=== PATIENT | male | born 1990 | race Caucasian/White ===

== ENCOUNTER 2016-08-11 20:36 | Inpatient (IN) | payer OTHER ==
[~2016-08-11] VITALS: Ht 175.3 cm; Wt 57.9 kg
[2016-08-11 22:25] VITALS: BP 119/58; PULSE 58; RESP 18; TEMP 98.2; O2SAT 98
[2016-08-11] MEDS ORDERED: ACETAMINOPHEN 325 MG TAB PO PRN (23:00)
[2016-08-11] MEDS ORDERED: ALUMINUM/MAGNESIUM/SIMETH 30 ML CUP PO PRN (23:00)
[2016-08-11] MEDS ORDERED: MAGNESIUM HYDROXIDE SUSP 30 ML CUP PO PRN (23:00)
[2016-08-11] MEDS ORDERED: LORazepam 1 MG TAB PO PRN (23:00)
[2016-08-11] MEDS ORDERED: LORazepam 2 MG/ML VIAL IM PRN (23:00)
[2016-08-12 05:39] VITALS: BP 105/52; PULSE 68; RESP 18; TEMP 98.1; O2SAT 98
[2016-08-12 08:28] LABS: ANION GAP 8 MEQ/L (5-15); BICARBONATE 29.3 MEQ/L (21.0-32.0); BLOOD UREA NITROGEN 14 MG/DL (7-18); CHLORIDE 104 MEQ/L (98-107); GLOMERULAR FILTRATION RATE 92 ML/MIN (>89); POTASSIUM 4.2 MEQ/L (3.5-5.1); SODIUM (NA) 141 MEQ/L (136-145)
[2016-08-12 08:30] LABS: HDL CHOLESTEROL 42.7 MG/DL (40.0-60.0); LDL CHOLESTEROL 95 MG/DL (0-99)
[2016-08-12] MEDS ORDERED: NICOTINE 21 MG/24 HR PATCH T-DERMAL SCH (09:00)
[2016-08-12 10:44] LABS: HEMOGLOBIN A1a 0.8 %; HEMOGLOBIN A1b 1.7 %; HEMOGLOBIN Ao 86.6 %; HEMOGLOBIN LA1C 1.9 %; HEMOGLOBIN P3 3.5 %
--- NOTE | 2016-08-12 10:57 | HHI.HP ---
Provisional Diagnosis Admission Date Aug 11, 2016 at 22:30 [place] I. Adjustment disorder with mixed disturbance of emotions and conduct Certification of Person's Competence To Provide Express and Informed Consent I have personally examined Rick Carreno , a person being served at [facility] on, Aug 12, 2016 10:52. Express and informed consent means consent voluntarily given in writing, by a competent person, after sufficient explanation and disclosure of the subject matter involved to enable the person to make a knowing and willful decision without any element of force, fraud, deceit, duress, or other form of constraint or coercion. This person is 18 years of age or older, is not now known to be incompetent to consent to treatment with a guardian advocate, and does not have a health care surrogate or proxy currently making medical treatment decisions. I have found this person to be one of the following: [x] Competent to provide express and informed consent, as defined above, for voluntary admission to this facility and is competent to provide express and informed consent for treatment. He/she has the consistent capacity to make well reasoned, willful, and knowing decisions concerning his or her medical or mental health treatment. The person fully and consistently understands the purpose of the admission for examination/placement and is fully capable of personally exercising all rights [place] Incompetent to provide express and informed consent to voluntary admission, and this is incompetent to provide express and informed consent to treatment. The person must be transferred to involuntary status and a petition for a guardian advocate filed with the Circuit Court. [] Refusing to provide express and informed consent to voluntary admission but is competent to provide express and informed consent for treatment. The person must be discharged or transferred to involuntary status. Form shall be completed within 24 hours of a person's arrival at the receiving facility and filed in the clinical record of each person: 1. Admitted on a voluntary basis 2. Permitted to provide express and informed consent to his/her own treatment 3. Allowed to transfer from involuntary to voluntary status 4. Prior to permitting a person to consent to his or her own treatment after having been previously found incompetent to consent to treatment. History of Present Illness Capacity: Has Capacity HPI Patient was apparently intoxicated last night and became upset and said things he does not mean. At this time he denies symptoms of depression or other psychiatric illness. He denies any suicidal or homicidal ideation. He denies any psychotic symptoms. He is calm and pleasant and cooperative. 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 His cognition is intact and he does not meet [place] act criteria or inpatient psychiatric admission criteria. Review of Systems ROS Limitations: Clinical Condition Except as stated in HPI: all other systems reviewed are Neg Past Psych History Psychological trauma history Denies Violence risk - others (6 mos) Minimal Violence risk - self (6 mos) Minimal Substance Abuse History Drugs/Alcohol past 12 months Denies for regular or routine or consistent abuse of substances or alcohol. Past Family Social History Past Medical History Denied Current Medications Medications (Trade) Dose Ordered Sig/Tanya Route Start Time Stop Time Status Last Admin (Habitrol 21 Mg Patch.24 Hr) 1 patch DAILY T-DERMAL 08/12/16 09:00 Miscellaneous Information 1 HS T-DERMAL 08/12/16 21:00 (Ativan) 1 mg Q6H PRN PO 08/11/16 23:00 (Ativan Inj) 1 mg Q6H PRN IM 08/11/16 23:00 (Tylenol) 650 mg Q4H PRN PO 08/11/16 23:00 (Milk Of Magnesia Liq) 30 ml DAILY PRN PO 08/11/16 23:00 (Mag-Al Plus Susp Liq) 30 ml Q6H PRN PO 08/11/16 23:00 Family History Denied for psychiatric illness Social History See above. Patient's Strengths (min. 2) Verbal and organized Physical Exam GENERAL: SKIN: Warm and dry. HEAD: Normocephalic. EYES: No scleral icterus. No injection or drainage. NECK: Supple, trachea midline. No JVD or lymphadenopathy. CARDIOVASCULAR: Regular rate and rhythm without murmurs, gallops, or rubs. RESPIRATORY: Breath sounds equal bilaterally. No accessory muscle use. GASTROINTESTINAL: Abdomen soft, non-tender, nondistended. MUSCULOSKELETAL: No cyanosis, or edema. BACK: Nontender without obvious deformity. No CVA tenderness. Vital Signs Vital Signs Date Time Temp Pulse Resp B/P Pulse Ox O2 Delivery O2 Flow Rate FiO2 08/12/16 05:39 98.1 68 18 105/52 98 Mental Status Examination Speech: Unremarkable Orientation: x3 Memory: Unremarkable Thought Process: Organized, Goal Directed Thought Content: Unremarkable Hallucination Type: None Attention and Concentration: Good Suicidal Ideation: No Previous Suicide Attempts: No Homicidal Ideation: No Previous Homicide Attempts: No Insight: Fair Judgement: WNL Affect: Good Mood: Appropriate Motor Activity: Normal gait Assessment & Plan Problem List: (1) Adjustment disorder with mixed disturbance of emotions and conduct ICD Code: F43.25 Assessment & Plan Estimated LOS: days patient to be discharged home as he does not meet Arguelles act criteria or inpatient psychiatric hospitalization criteria. Greg Figueredo MD Aug 12, 2016 10:57
[2016-08-12] MEDS ORDERED: REMOVE OLD NICOTINE PATCH T-DERMAL SCH (21:00)
== END 2016-08-12 14:50 | disposition home or self-care (01) | DRG 882 ==
LOC: H260 22:30
PROVIDERS: ADMIT Psychiatry & Neurology Psychiatry; ATTEND Psychiatry & Neurology Psychiatry
DX: F43.25 Adjustment disorder with mixed disturbance of emotions and conduct (principal)
CPT/HCPCS: 80048; 80061; 83036